=== PATIENT | female | born 1975 | race Caucasian/White ===

== ENCOUNTER → 2019-04-21 11:15 | Outpatient (CLI) | payer MEDICAID, SELFPAY ==
[2019-04-09 17:25] VITALS: BMI 55.0
[2019-04-21 11:50] LABS: Absolute Lymphocyte Count 2.31 X10^3/uL (0.83-4.51); Absolute Neutrophil Count 7.4 X10^3/uL (2.0-7.7); Basophil# 0.05 X10^3/uL; Basophil% 0.5 % (0-1); Eosinophil# 0.14 X10^3/uL; Eosinophils% 1.3 % (0-5); Hematocrit 42.3 % (37-47); Hemoglobin 13.2 g/dL (12.0-15.0); Lymphocyte # 2.31 X10^3/ul (4.0); Lymphocyte % 21.7 % (19-41); Mean Corp Hgb Conc 31.2 g/dL (32-36); Mean Corpuscular Hgb 26.2 pg (27.0-32.0); Mean Corpuscular Volume 83.9 fL (81-99); Mean Platelet Vol. 10.6 fl (6.2-12.0); Monocyte# 0.73 X10^3/uL; Monocyte% 6.9 % (0-10); NRBC Flagged by Analyzer 0 % (0-5); Neutrophil # 7.36 X10^3/uL (2.7-7.7); Neutrophil % 69.2 % (47-70); Platelet Count 232 K/mm3 (150-450); RBC Distribution Width CV 13.4 % (11.6-14.6); RBC Distribution Width SD 40.9 fl (35.1-43.9); Red Blood Count 5.04 M/mm3 (4.2-5.4); White Blood Count 10.6 K/mm3 (4.4-11.0)
[2019-04-21 12:27] LABS: ALB/GLOB Ratio 0.7 RATIO (0.9-2.4); AST(SGOT) 23 U/L (15-37); Alanine Aminotransfer ALT/SGPT 33 U/L (13-56); Albumin, Serum 3.2 g/dL (3.2-5.0); Alkaline Phosphatase 139 U/L (45-117); Anion Gap 7 (5-15); BUN 14 mg/dL (7-18); BUN/Creat Ratio 19.8 RATIO (10-20); Chloride 107 mmol/L (98-107); Cholesterol 191 mg/dL (200); Creatinine, Serum 0.71 mg/dL (0.55-1.02); EST Glomerular Filtration Rate 97 mL/min (>60); Est Glom Filt Rate - Afr Amer 117 mL/min (>60); Globulin 4.4 g/dL (2.2-4.2); Glucose 113 mg/dL (74-106); High Density Lipoprotein 45 mg/dL; Potassium 4.4 mmol/L (3.5-5.1); Protein, Total 7.6 g/dL (6.4-8.2); Sodium Level 141 mmol/L (136-145); Triglycerides 142 mg/dL; Very Low Density Lipoprotein 28 mg/dL (5-40)
== END ==
PROVIDERS: Family Provider Internal Medicine; PCP Internal Medicine; Referring Provider Internal Medicine; Visit Provider Internal Medicine
DX: I10 Essential (primary) hypertension (principal); E78.5 Hyperlipidemia, unspecified; K21.9 Gastro-esophageal reflux disease without esophagitis
CPT/HCPCS: 36415; 80053; 80061; 85025

== ENCOUNTER → 2019-07-29 09:52 | Outpatient (CLI) | payer MEDICAID, SELFPAY ==
[2019-07-29 09:06] VITALS: BMI 55.5
[2019-07-29 12:25] LABS: ALB/GLOB Ratio 0.8 RATIO (0.9-2.4); AST(SGOT) 28 U/L (15-37); Alanine Aminotransfer ALT/SGPT 39 U/L (13-56); Albumin, Serum 3.5 g/dL (3.2-5.0); Alkaline Phosphatase 136 U/L (45-117); Anion Gap 4 (5-15); BUN 12 mg/dL (7-18); BUN/Creat Ratio 15.7 RATIO (10-20); Calcium,Total 9.5 mg/dL (8.5-10.1); Chloride 106 mmol/L (98-107); Creatinine, Serum 0.77 mg/dL (0.55-1.02); EST Glomerular Filtration Rate 88 mL/min (>60); Est Glom Filt Rate - Afr Amer 107 mL/min (>60); Globulin 4.5 g/dL (2.2-4.2); Glucose 137 mg/dL (74-106); Potassium 4.6 mmol/L (3.5-5.1); Sodium Level 138 mmol/L (136-145); Thyroid Stim Hormone (TSH) 3.57 uIU/mL (0.358-3.74)
== END ==
PROVIDERS: Family Provider Internal Medicine; PCP Internal Medicine; Visit Provider Nurse Practitioner Family
DX: I10 Essential (primary) hypertension (principal); R10.11 Right upper quadrant pain
CPT/HCPCS: 36415; 80053; 84443

== ENCOUNTER → 2019-08-02 09:13 | Outpatient (CLI) | payer MEDICAID, SELFPAY ==
[2019-07-29 09:06] VITALS: BMI 55.5
--- NOTE | 2019-08-02 09:18 | US_ITS ---
STUDY: ABDOMINAL ULTRASOUND - RIGHT UPPER QUADRANT REASON FOR VISIT: Female, 43 years old. Right upper quadrant pain TECHNIQUE: Ultrasound evaluation of the right upper quadrant was performed with real-time and static mehta-scale imaging. TECHNICAL QUALITY: Adequate. COMPARISON: None. FINDINGS: Liver: The liver measures 19.5 cm. There is increased echogenicity of the liver. The bile ducts are within normal limits. There is hepatic color flow. The direction of portal flow is hepatopetal. There is no demonstrated mass lesion. Gallbladder: Surgically removed Common Bile Duct (C.B.D.): The common bile duct measures 5 mm. Pancreas: Not visualized Right Kidney: Normal size of the right kidney. The right kidney measures 11.3 x 5.4 x 7.1 cm. Normal renal cortex. The right cortex measures 2 cm. There is a 1 cm renal cyst.. There is no right hydronephrosis. US/Abdomen Limited IMPRESSION: Hepatomegaly and diffuse disease, presumably steatosis. Hepatology referral is advised. Electronically Signed: Delmi Sofia, at 20:59 EST Tel , Service support ,
== END ==
PROVIDERS: Family Provider Internal Medicine; PCP Internal Medicine; Referring Provider Nurse Practitioner Family; Visit Provider Nurse Practitioner Family
DX: R10.11 Right upper quadrant pain (principal)
CPT/HCPCS: 76705

== ENCOUNTER 2019-12-10 14:53 | Outpatient (RCR) | payer MEDICAID, SELFPAY ==
[2019-11-21 14:03] VITALS: BMI 55.5
== END 2019-12-10 23:59 | disposition home or self-care (01) ==
LOC: DC 14:53
PROVIDERS: PCP Internal Medicine; Visit Provider Nurse Practitioner Family
DX: Z71.3 Dietary counseling and surveillance (principal); E11.9 Type 2 diabetes mellitus without complications; E66.9 Obesity, unspecified; Z68.43 Body mass index [BMI] 50.0-59.9, adult
CPT/HCPCS: G0108

== ENCOUNTER → 2020-01-29 14:54 | Outpatient (CLI) | payer MEDICAID, SELFPAY ==
[2020-01-29 14:05] VITALS: BMI 55.5
[2020-01-29 17:15] LABS: Anion Gap 8 (5-15); BUN 10 mg/dL (7-18); BUN/Creat Ratio 14.7 RATIO (10-20); Calcium,Total 8.7 mg/dL (8.5-10.1); Chloride 105 mmol/L (98-107); Creatinine, Serum 0.68 mg/dL (0.55-1.02); EST Glomerular Filtration Rate 101 mL/min (>60); Est Glom Filt Rate - Afr Amer 122 mL/min (>60); Glucose 154 mg/dL (74-106); Potassium 3.8 mmol/L (3.5-5.1); Sodium Level 137 mmol/L (136-145)
== END ==
PROVIDERS: PCP Internal Medicine; Referring Provider Internal Medicine; Visit Provider Internal Medicine
DX: I10 Essential (primary) hypertension (principal)
CPT/HCPCS: 36415; 80048

== ENCOUNTER → 2020-02-23 14:47 | Outpatient (CLI) | payer MEDICAID, SELFPAY ==
[2020-02-18 08:25] VITALS: BMI 55.5
[2020-02-23 16:53] LABS: Platelet Count 200 K/mm3 (150-450)
[2020-02-23 17:08] LABS: International Normalized Ratio 1.1; Prothrombin Time (Protime)PT. 13.4 SECONDS (11.7-14.9)
[2020-02-23 17:09] LABS: Partial Thromboplast Time 30.1 Seconds (24.1-36.2)
== END ==
PROVIDERS: PCP Internal Medicine; Referring Provider Surgery; Visit Provider Surgery
DX: Z01.818 Encounter for other preprocedural examination (principal)
CPT/HCPCS: 36415; 85049; 85610; 85730

== ENCOUNTER → 2020-02-26 08:44 | Outpatient (CLI) | payer MEDICAID, SELFPAY ==
[2020-02-18 08:25] VITALS: BMI 55.5
[2020-02-26] VITALS (8 sets, daily range): BP systolic 118–159; BP diastolic 71–116; PULSE 80–103; RESP 10–24; O2SAT 94–99; BMI 54.3
--- NOTE | 2020-02-26 | CYSPIN_PTH ---
PATIENT: RICKY RICHARDS LOC: [place] U#:[id number] AGE/SX: 49/F ROOM: RE02/26/[address]: Dr. Wojciech Killian MD : 1975 BED: DIS: SPEC #: [id number] RECD: 02/26/20 14:34 STATUS: NGA REKrista #: [id number] COSTA: 02/26/20 00:[address]: Wojciech Killian DEPT: CYTOLOGY RECD BY: Dale Pascal ENTERED: 02/26/20 14:35 SP TYPE: CYSPIN FL OTHR DR: Dr. Jermaine Juarez MD Tissues: Umbilical region Procedures: Pap Stain (control) Special Stain Group II Surgery Specimen Level IV Cytospin Fluid HEADER OPERATION: Periumbilical cyst, FNA PRE-OP DIAGNOSIS: Disorder of peritoneum, periumbilical pain, abnormal findings on imaging TISSUE SUBMITTED: Periumbilical cyst DIAGNOSIS CYTOLOGY Periumbilical cyst, FNA (cytospin and cell block): Consistent with benign cyst. See comment. JOLIE:lucrecia 02/27/20 COMMENT The specimen predominantly consists of macrophages. Malignant cells are not identified. Correlation with clinical, radiologic findings and appropriate follow up are necessary. CYTOLOGY STUDY Slides are reviewed. CYTOLOGY GROSS Received is 5 ml of red cloudy fluid labeled with the patient's name and and designated per the requisition as periumbilical cyst. Submitted for cytology preparation including cell block. / lucrecia 02/26/20 TC:5 CPT: 55405, 64545
--- NOTE | 2020-02-26 08:45 | CT_ITS ---
PROCEDURE: CT DIRECTED ABSCESS DRAINAGE, PERITONEAL DATE OF EXAMINATION: 02/26/2020. INDICATION: Female, 44 years old. Anterior peritoneal cyst. PHYSICIAN: Emanuel Perez M.D. CONSENT: Written informed consent was obtained having explained the risks, benefits and alternatives in detail with the patient who accepted the risks and agreed to proceed. Laboratory review and clinical assessment was performed. CONSCIOUS SEDATION PROTOCOL: The Drugs used were: 3 mg Versed, IV., and 75 mcg Fentanyl, IV. The sedation time was: 19 minutes. Conscious sedation was started at 10:09 AM and terminated at 10:28 AM The conscious sedation protocol was independently monitored. RADIATION DOSAGE (If Supplied By Facility): CTDIvol = ( 19 ) mGy, DLP = ( 1143.71 ) mGycm. Individualized dose optimization techniques were utilized. TECHNIQUE: CT sections were made through the abdomen and pelvis revealing a 2.7 cm by 2.6 cm predominantly cystic nodule in the anterior peritoneal fat in the right paraumbilical region. The skin surface was prepped and draped in a sterile fashion. Puncture of this collection was performed with an 18-gauge Franseen needle. Aspiration of approximately 5 cc of dark blood was obtained. This is in keeping with resolving hematoma. CT/CT Guidance Abscess Drg w/Cath IMPRESSION: 1. CT directed drainage of a fluid collection using CT image guidance and image documentation as described. 2. Conscious Sedation protocol utilized with independent monitoring Electronically Signed: Emanuel Perez, at 10:49 EDT , Service support ,
[2020-02-26] MEDS: Midazolam 2 MG/2 ML Syringe IV ×2 (10:09→10:25)
[2020-02-26] MEDS: fentaNYL 100 MCG/2 ML Ampul IV ×2 (10:10→10:25)
[2020-02-26 11:11] LABS: Cytology, Body Fluid / CSF SEE PATHOLOGY REPORT
== END ==
PROVIDERS: PCP Internal Medicine; Referring Provider Surgery; Visit Provider Surgery
DX: K66.8 Other specified disorders of peritoneum (principal); I10 Essential (primary) hypertension; E78.00 Pure hypercholesterolemia, unspecified; M19.90 Unspecified osteoarthritis, unspecified site; K21.9 Gastro-esophageal reflux disease without esophagitis; Z87.891 Personal history of nicotine dependence
CPT/HCPCS: 49406; 75989; 88108; 88305; 88313; 99156; 99157; J7040; A4216

== ENCOUNTER → 2020-07-09 | Outpatient (CLI) | payer MEDICAID, SELFPAY ==
[2020-04-02 14:09] VITALS: BMI 54.3
== END | disposition home or self-care (01) ==
LOC: LABSPEC 13:42
PROVIDERS: PCP Internal Medicine; Referring Provider Nurse Practitioner Family; Visit Provider Nurse Practitioner Family
DX: Z20.828 Contact with and (suspected) exposure to other viral communicable diseases (principal); R19.7 Diarrhea, unspecified
CPT/HCPCS: 87635; U0003

== ENCOUNTER 2020-09-12 13:12 | Emergency (ER) | payer MEDICAID, SELFPAY ==
[2020-04-02 14:09] VITALS: BMI 54.3
[2020-09-12 13:13] VITALS: BP 179/121; PULSE 102; RESP 18; TEMP 35.8; O2SAT 97; BMI 54.5
[2020-09-12 13:23] VITALS: BP 182/118; PULSE 98; RESP 16; O2SAT 97
[2020-09-12 13:31] LABS: Bedside Glucose 107 mg/dL (70-110)
--- NOTE | 2020-09-12 13:36 | EKG12_ITS ---
Test Reason : CHEST TINGLES Blood Pressure : / mmHG Vent. Rate : 092 BPM Atrial Rate : 092 BPM P-R Int : 166 ms QRS Dur : 094 ms QT Int : 368 ms P-R-T Axes : 043 015 058 degrees QTc Int : 455 ms Normal sinus rhythm Normal ECG Confirmed by GAVIN HAHN, MYNOR ([id number]), video effects editor [employer] ([id number]) on 09/16/2020 8:41:47 AM Referred By: PER Confirmed By:MYNOR ALONSO MD
--- NOTE | 2020-09-12 13:36 | CT_ITS ---
STUDY: CT BRAIN WITHOUT CONTRAST REASON FOR EXAM: Female, 44 years old. N/T LT FACE, BACK OF HEAD, BILAT FEET, LT ARM, DIZZINESS, HLD,HTN RADIATION DOSAGE (If Supplied By Facility): CTDIvol = ( 44.99 ) mGy, DLP = ( 829.85 ) mGycm TECHNIQUE: Transaxial CT imaging of the brain was performed without administration of intravenous contrast material. Individualized dose optimization techniques were used for this CT. COMPARISON: No relevant priors. FINDINGS: Normal soft tissue structures. Normal calvarium. Normal size ventricles and extra-axial spaces for the patient''s age. Normal white matter tracts of the cerebral hemispheres. Normal basal ganglia and thalami. Normal brainstem. Normal cerebellum. There is no intracranial hemorrhage. There are no findings of an acute ischemic infarction. Normal visualized paranasal sinuses. CT/Brain/Head without Contrast IMPRESSION: Normal unenhanced CT scan of the brain. Electronically Signed: Alexia Solorio MD at 14:55 EST Tel , Service support ,
--- NOTE | 2020-09-12 13:37 | ED.VIS.GEN ---
History of Present Illness Chief Complaint: Neuro S/Sx Informant: Patient Onset: Today - Awoke this morning Context: Sudden Onset Timing: Continuous Quality: Numbness Location: Band around head, 2 specific areas face, LUE and dorsal surface feet Current Severity: Mild Maximum Severity: Moderate Worsened by: Nothing Relieved by: Nothing Associated Symptoms: No other symptoms Narrative: Patient is a 44-year-old woman who had similar symptoms last Sunday and was seen at outside facility. She states no imaging was done at that time. They did not treat her elevated blood pressure. She states her systolic pressure was 190. She was seen by orthopedist on September 07. Systolic blood pressure was 124. She states upon awakening this morning she has numbness that is in a bandlike distribution head, over the left maxillary area there is point numbness and inferior left orbit. She denies trouble with swallowing. She denies trouble with speech or swallowing. She denies difficulty using her arms or arms with balance. She also reports numbness left upper extremity and the dorsal surface of her feet. She denies cardiac, respiratory or GI symptoms. Prior similar symptoms: Yes Recent Illness/Hospitalization: Yes - Past Medical History (1) Numbness and tingling of both legs Status: Acute (2) Arthritis Status: Chronic (3) Back problem Status: Chronic (4) Frequent headaches Status: Chronic (5) GERD (gastroesophageal reflux disease) Status: Chronic (6) High blood pressure Status: Chronic (7) High cholesterol Status: Chronic (8) Osteoarthritis Status: Chronic (9) Breast lump in female Status: Resolved (10) Carpal tunnel syndrome Status: Resolved Past Medical History - Allergies and Home Meds Allergies/Adverse Reactions: Allergies No Known Allergies Allergy (Verified 09/12/20 13:13) Primary Care Physician: Jermaine Juarez MD [Primary Care Provider] - Prior records reviewed: Yes Surgical History: - - Numerous surgeries that are not contributory to presentation Smoking Status: Former smoker Alcohol: None Drugs: None Review of Systems General: Denies: Chills, Fever, Malaise, Subjective, Sweats Eyes: Denies: Visual changes - bilaterally, Blurred Vision - bilaterally, Diplopia ENT: Denies: Bilateral ear pain, Rhinorrhea, Sore throat Cardiovascular: Denies: Chest pain, Palpitations Respiratory: Denies: Dyspnea, Cough, Dyspnea on exertion Gastrointestinal: Denies: Abdominal pain, Nausea, Vomiting, Diarrhea, Melena, Hematochezia Genitourinary: Denies: Dysuria, Hematuria, Frequency Musculoskeletal: Denies: Myalgias, Arthralgias, Neck pain, Back pain, Swelling, Extremity Pain, -, - Neurological: Reports: Parasthesia, Numbness. Denies: Headache, Weakness Psych: Denies: Depression, Anxiety Endocrine: Denies: Polyuria, Polydipsia Hematologic: Denies: Easy bruising, Easy bleeding Allergy: Denies: Uticaria Physical Exam Vital Signs/Narrative: Vital Signs Temp Pulse Resp BP Pulse Ox 09/12/20 13:23 98 16 182/118 H 97 09/12/20 13:13 96.5 F L 102 H 18 179/121 H 97 Inital Vital Signs reviewed: Yes General: Well nourished, Well developed, Obese, No Acute Distress Head: Normocephalic, Atraumatic Eyes: Perrl, EOMI, - - Negative for APD. Negative for: Pale conjunctiva, Scleral icterus ENT: Moist mucous membranes, No rhinorrhea, TM's clear Neck: Supple, Nontender, No lymphadenopathy, No JVD Cardiovascular: Regular rate, Regular rhythm, No murmurs, Normal S1, Normal S2 Respiratory: No distress, CTA bilaterally, Chest nontender Abdomen: Soft, Nontender, Nondistended, Normal bowel sounds Rectal: Deferred Back: Nontender, Normal Inspection Extremities: Nontender, No edema. Negative for: Tenderness, Edema, Calf Tenderness Skin: Normal color, No rash. Negative for: Cyanosis, Diaphoresis, Jaundice, No Trauma Neurological: Alert, Oriented x3, Cranial nerves II-XII grossly intact, Normal Strength, Normal Sensation, Normal DTR Psychological: Normal affect Diagnostic/Tx/Re-eval Impressions Brain CT 09/12/20 13:36 IMPRESSION: Normal unenhanced CT scan of the brain. Electronically Signed: Alexia Solorio MD at 14:55 EST Tel , Service support , 09/12/20 13:36 Brain/Head without Contrast [CT] Stat Laboratory Results 09/12/20 09/12/20 09/12/20 13:23 13:45 13:45 WBC 8.0 RBC 4.75 Hgb 12.9 Hct 39.9 MCV 84.0 MCH 27.2 MCHC 32.3 RDW Std Deviation 39.2 RDW Coeff of Celena 12.8 Plt Count 211 MPV 10.7 Immature Gran % (Auto) 0.500 Neut % (Auto) 73.5 H Lymph % (Auto) 19.0 Mckean % (Auto) 5.5 Eos % (Auto) 1.1 Baso % (Auto) 0.4 Absolute Neuts (auto) 5.9 Absolute Lymphs (auto) 1.52 Nucleated RBC % 0 Sodium 138 Potassium 3.5 Chloride 104 Carbon Dioxide 26.0 Anion Gap 8 BUN 12 Creatinine 0.65 Estim Creat Clear Calc 105.55 Est GFR (MDRD) Af Amer 128 Est GFR (MDRD) Non-Af 106 BUN/Creatinine Ratio 18.4 Glucose 111 H Calcium 8.9 Urine Color Urine Clarity Urine pH Ur Specific [place] Urine Protein Urine Glucose (UA) Urine Ketones Urine Occult Blood Urine Nitrite Urine Bilirubin Urine Urobilinogen Ur Leukocyte Esterase Urine RBC Urine WBC Ur Squamous Epith Cells Urine Bacteria Urine Mucus POC Glucose 107 09/12/20 14:05 WBC RBC Hgb Hct MCV MCH MCHC RDW Std Deviation RDW Coeff of [place] Plt Count MPV Immature Gran % (Auto) Neut % (Auto) Lymph % (Auto) Mckean % (Auto) Eos % (Auto) Baso % (Auto) Absolute Neuts (auto) Absolute Lymphs (auto) Nucleated RBC % Sodium Potassium Chloride Carbon Dioxide Anion Gap BUN Creatinine Estim Creat Clear Calc Est GFR (MDRD) Af Amer Est GFR (MDRD) Non-Af BUN/Creatinine Ratio Glucose Calcium Urine Color Yellow Urine Clarity Clear Urine pH 5.0 Ur Specific [place] 1.020 Urine Protein 30 H Urine Glucose (UA) Normal Urine Ketones 5 H Urine Occult Blood Negative Urine Nitrite Negative Urine Bilirubin 1 H Urine Urobilinogen 1 H Ur Leukocyte Esterase 25 H Urine RBC 0 SEEN Urine WBC 0 SEEN Ur Squamous Epith Cells 10-25 SEEN Urine Bacteria 2+ Urine Mucus 2+ POC Glucose Urine is a contaminated specimen with 10-[address] of the head was unremarkable. There is no evidence of endorgan injury. Most recent blood pressure is 160/105. Patient states she will go home and take her dose of losartan and hydrochlorothiazide. She states she will contact her primary care physician tomorrow morning to get seen within the next week. - EKG Initial EKG Interpretation: Sinus Rhythm - Normal sinus rhythm with ventricular rate 92. IN interval is 166 ms. Cures duration 94 ms. QT duration 368 ms. Weldon is normal. The EKG is normal. - Medical Decision Making Does have elevated blood pressure with diastolic 120. EKG, blood work and urinalysis was obtained to assess for endorgan injury. Since this is her second visit for similar presentation and no imaging was done 1 week ago will obtain imaging at this time. ED Disposition - Plan for ED Patient: Disposition: Home or Assisted Living Diagnosis: Labile hypertension, Paresthesia of both feet Instructions: ED Hypertension, Established, ED Paraesthesias Referrals: Jermaine Juarez MD [Primary Care Provider] - 5-7 Days
[2020-09-12 13:52] LABS: Absolute Lymphocyte Count 1.52 X10^3/uL (0.83-4.51); Absolute Neutrophil Count 5.9 X10^3/uL (2.0-7.7); Basophil# 0.03 X10^3/uL; Basophil% 0.4 % (0-1); Eosinophil# 0.09 X10^3/uL; Eosinophils% 1.1 % (0-5); Hematocrit 39.9 % (37-47); Hemoglobin 12.9 g/dL (12.0-15.0); Lymphocyte # 1.52 X10^3/ul (4.0); Mean Corp Hgb Conc 32.3 g/dL (32-36); Mean Corpuscular Hgb 27.2 pg (27.0-32.0); Mean Platelet Vol. 10.7 fl (6.2-12.0); Monocyte# 0.44 X10^3/uL; Monocyte% 5.5 % (0-10); NRBC Flagged by Analyzer 0 % (0-5); Neutrophil # 5.89 X10^3/uL (2.7-7.7); Neutrophil % 73.5 % (47-70); Platelet Count 211 K/mm3 (150-450); RBC Distribution Width CV 12.8 % (11.6-14.6); RBC Distribution Width SD 39.2 fl (35.1-43.9); Red Blood Count 4.75 M/mm3 (4.2-5.4)
[2020-09-12 14:11] LABS: Red Blood Cells-Urine 0 SEEN /hpf (0-5); White Blood Cells 0 SEEN /hpf (0-5)
[2020-09-12 14:12] LABS: Anion Gap 8 (5-15); BUN 12 mg/dL (7-18); BUN/Creat Ratio 18.4 RATIO (10-20); Calcium,Total 8.9 mg/dL (8.5-10.1); Chloride 104 mmol/L (98-107); Creatinine, Serum 0.65 mg/dL (0.55-1.02); EST Glomerular Filtration Rate 106 mL/min (>60); Est Glom Filt Rate - Afr Amer 128 mL/min (>60); Estimated Creatinine Clearance 105.55 ml/min; Glucose 111 mg/dL (74-106); Potassium 3.5 mmol/L (3.5-5.1); Sodium Level 138 mmol/L (136-145)
[2020-09-12 14:22] LABS: Color, Urine Yellow (Yellow); Glucose, Dipstick Normal (Normal); Ketone-Dipstick 5 mg/dl (Negative); Leukocyte Esterase-Dipstick 25 /ul (Negative); Nitrite-Dipstick Negative (Negative); Occult Blood-Urine Negative /ul (Negative); Protein-Dipstick 30 mg/dl (Negative); Urine Clarity Clear (Clear); Urine Urobilinogen 1 mg/dl (Normal)
[2020-09-12 14:28] LABS: Urine Bilirubin Dipstick 1 mg/dL (Negative)
[2020-09-12 14:40] LABS: Bacteria 2+ /hpf (None Seen); Mucous, Urine 2+ /hpf (<or=2+); Squamous Epithelial Cells - UA 10-25 SEEN /hpf (5-10)
[2020-09-12 15:05] LABS: AST(SGOT) 32 U/L (15-37); Alanine Aminotransfer ALT/SGPT 38 U/L (13-56); Albumin, Serum 3.3 g/dL (3.2-5.0); Alkaline Phosphatase 125 U/L (45-117); Bilirubin, Direct 0.12 mg/dL (0.00-0.30); Globulin 3.8 g/dL (2.2-4.2); Protein, Total 7.1 g/dL (6.4-8.2)
[2020-09-12 15:52] VITALS: BP 151/102; PULSE 91; RESP 16; O2SAT 99
== END 2020-09-12 15:53 | disposition home or self-care (01) ==
PROVIDERS: Emergency Provider Emergency Medicine; PCP Internal Medicine
DX: I10 Essential (primary) hypertension (principal); R20.2 Paresthesia of skin; M19.90 Unspecified osteoarthritis, unspecified site; K21.9 Gastro-esophageal reflux disease without esophagitis; E78.00 Pure hypercholesterolemia, unspecified; E66.9 Obesity, unspecified; Z68.43 Body mass index [BMI] 50.0-59.9, adult; Z87.891 Personal history of nicotine dependence
CPT/HCPCS: 70450; 80048; 80076; 81001; 82962; 85025; 93005; 99284; A4216

== ENCOUNTER 2020-09-20 08:04 | Day surgery (SDC) | payer MEDICAID, SELFPAY ==
[2020-04-02 14:09] VITALS: BMI 54.3
[2020-09-16 09:26] VITALS: BMI 54.5
[2020-09-17 09:20] LABS: Hematocrit 44.1 % (37-47); Hemoglobin 13.9 g/dL (12.0-15.0); Mean Corp Hgb Conc 31.5 g/dL (32-36); Mean Corpuscular Hgb 26.4 pg (27.0-32.0); Mean Corpuscular Volume 83.8 fL (81-99); Mean Platelet Vol. 11.2 fl (6.2-12.0); Platelet Count 268 K/mm3 (150-450); RBC Distribution Width SD 39.6 fl (35.1-43.9); Red Blood Count 5.26 M/mm3 (4.2-5.4)
[2020-09-17 10:24] LABS: Anion Gap 6 (5-15); BUN 14 mg/dL (7-18); BUN/Creat Ratio 18.4 RATIO (10-20); Calcium,Total 9.5 mg/dL (8.5-10.1); Chloride 102 mmol/L (98-107); Creatinine, Serum 0.76 mg/dL (0.55-1.02); EST Glomerular Filtration Rate 88 mL/min (>60); Est Glom Filt Rate - Afr Amer 107 mL/min (>60); Glucose 136 mg/dL (74-106); Potassium 4.3 mmol/L (3.5-5.1); Sodium Level 135 mmol/L (136-145)
[2020-09-17 10:25] LABS: Hemoglobin A1c 6.1 % (3.8-5.6)
[2020-09-20] VITALS (7 sets, daily range): BP systolic 105–140; BP diastolic 58–85; PULSE 92–111; RESP 16–18; TEMP 36.3–36.9; O2SAT 92–97; BMI 54.1
[2020-09-20] MEDS: Lactated Ringers 1,000 ML 100 ML IV (09:07)
[2020-09-20] MEDS: Epinephrine (1 mg/ml) 1 MG/ML VIAL (10:05)
[2020-09-20] MEDS: Bupiv/Epi 0.5% Mpf 30 ML Vial (10:15)
--- NOTE | 2020-09-20 10:23 | PCM.OPRPT ---
Report of Operation Date of Procedure: 09/20/20 Pre-Operative Diagnosis: Internal derangement right knee Post-Operative Diagnosis: MMT, LMT, Partial ACL tear, Grade 3 chondromalacia MFC, LFC and PFJ Surgery/Procedure Performed:: D & O arthroscopy right knee Type of Anesthesia:: General Anesthesiologist: Juan J Pritchard - Admbenedict VTE Documentation VTE Present on Admission: No VTE Mechan Device Prophylaxis: SCD's, Thigh High MIKE Hose VTE Pharm Prophylaxis ordered?: No Reason prophylaxis not ordered:: Treatment Not Indicated
[2020-09-20] MEDS: HYDROcodone Bitartrate/Apap 5/325 Tablet PO (12:03)
== END 2020-09-20 12:48 | disposition home or self-care (01) ==
LOC: SDC 08:05 → AC 08:06
PROVIDERS: PCP Internal Medicine; Referring Provider Orthopaedic Surgery; Visit Provider Orthopaedic Surgery
PROC: (CPT 29870; principal; 2020-09-20 09:40)
DX: S83.241A Other tear of medial meniscus, current injury, right knee, initial encounter (principal); S83.281A Other tear of lateral meniscus, current injury, right knee, initial encounter; S83.511A Sprain of anterior cruciate ligament of right knee, initial encounter; X58.XXXA Exposure to other specified factors, initial encounter; M22.41 Chondromalacia patellae, right knee; M17.12 Unilateral primary osteoarthritis, left knee; I10 Essential (primary) hypertension; Z20.822 Contact with and (suspected) exposure to COVID-19; Z87.891 Personal history of nicotine dependence
CPT/HCPCS: 29880; 29999; 36415; 80048; 83036; 85027; 87426; C9803; J7120; J2405

== ENCOUNTER → 2020-11-23 10:07 | Outpatient (CLI) | payer MEDICAID, SELFPAY ==
[2020-11-23 09:39] VITALS: BMI 54.1
[2020-11-23 12:50] LABS: Hematocrit 43.4 % (37-47); Hemoglobin 13.4 g/dL (12.0-15.0); Mean Corp Hgb Conc 30.9 g/dL (32-36); Mean Corpuscular Hgb 26.4 pg (27.0-32.0); Mean Corpuscular Volume 85.4 fL (81-99); Mean Platelet Vol. 11.9 fl (6.2-12.0); Platelet Count 235 K/mm3 (150-450); RBC Distribution Width CV 13.2 % (11.6-14.6); RBC Distribution Width SD 40.8 fl (35.1-43.9); Red Blood Count 5.08 M/mm3 (4.2-5.4); White Blood Count 11.4 K/mm3 (4.4-11.0)
[2020-11-23 13:41] LABS: ALB/GLOB Ratio 0.8 RATIO (0.9-2.4); AST(SGOT) 37 U/L (15-37); Alanine Aminotransfer ALT/SGPT 41 U/L (13-56); Albumin, Serum 3.3 g/dL (3.2-5.0); Alkaline Phosphatase 132 U/L (45-117); Anion Gap 6 (5-15); BUN 11 mg/dL (7-18); BUN/Creat Ratio 14.8 RATIO (10-20); Calcium,Total 9.4 mg/dL (8.5-10.1); Chloride 103 mmol/L (98-107); Creatinine, Serum 0.74 mg/dL (0.55-1.02); EST Glomerular Filtration Rate 91 mL/min (>60); Est Glom Filt Rate - Afr Amer 110 mL/min (>60); Globulin 4.2 g/dL (2.2-4.2); Glucose 145 mg/dL (74-106); Magnesium 2.3 mg/dL (1.6-2.6); Protein, Total 7.5 g/dL (6.4-8.2); Sodium Level 136 mmol/L (136-145)
[2020-11-24 09:44] LABS: Hemoglobin A1c 6.4 % (3.8-5.6)
== END ==
PROVIDERS: PCP Internal Medicine; Referring Provider Nurse Practitioner Family; Visit Provider Nurse Practitioner Family
DX: R00.2 Palpitations (principal); R73.09 Other abnormal glucose
CPT/HCPCS: 36415; 80053; 83036; 83735; 84443; 85027

== ENCOUNTER → 2020-12-13 12:58 | Outpatient (CLI) | payer MEDICAID, SELFPAY ==
[2020-11-23 09:39] VITALS: BMI 54.1
== END ==
PROVIDERS: PCP Internal Medicine; Referring Provider Nurse Practitioner Family; Visit Provider Nurse Practitioner Family
DX: R00.2 Palpitations (principal)
CPT/HCPCS: 93225; 93226

== ENCOUNTER → 2021-01-17 12:59 | Outpatient (CLI) | payer MEDICAID, SELFPAY ==
[2020-12-29 13:51] VITALS: BMI 54.8
--- NOTE | 2021-01-17 13:00 | ECHOCS_ITS ---
Reason For Study: ARRHYTHMIA Procedure This was a 2D Doppler, Color Flow transthoracic echocardiogram. The study was technically difficult. Due to body habitus. Contrast injection was performed. Exam performed in department. Left Ventricle Normal LV size. Mild concentric left ventricular hypertrophy. Left ventricular systolic function is normal. The estimated ejection fraction is 65 %. Stage 1 diastolic dysfunction. No regional wall motion abnormalities noted. Right Ventricle Normal RV size. Normal systolic function. Atria Normal left atrium. Normal right atrium. Mitral Valve Normal mitral valve. Tricuspid Valve Normal tricuspid valve. Aortic Valve The aortic valve is not well visualized. Pulmonic Valve Normal pulmonic valve. Great Vessels Normal aortic root. The pulmonary artery is normal size. Normal inferior vena cava. Pericardium/Pleural No pericardial effusion. Medication 22 gauge I.V. with prn adaptor inserted into right arm. Diluted definity 2.0ml given slow IV push to enhance endocardial definition. MMode/2D Measurements & Calculations LVIDd: 4.1 cm IVSd: 1.3 cm Ao root diam: 3.1 cm LVIDs: 2.6 cm LVPWd: 1.3 cm RVDd: 2.7 cm FS: 35.5 % LAV(MOD-bp): 54.5 ml LVAd ap4: 36.5 cm2 LVAd ap2: 33.3 cm2 LAV(MOD-bp) Indexed: 21.8 ml/m2 LVLd ap4: 9.8 cm LVLd ap2: 8.4 cm LAV(MOD-sp2): 50.0 ml EDV(MOD-sp4): 114.0 ml EDV(MOD-sp2): 107.2 ml LAV(MOD-sp4): 50.0 ml EDV(sp4-el): 115.6 ml EDV(sp2-el): 112.0 ml LVAs ap4: 18.0 cm2 LVAs ap2: 16.6 cm2 LVLs ap4: 8.1 cm LVLs ap2: 7.9 cm ESV(MOD-sp4): 34.0 ml ESV(MOD-sp2): 30.2 ml ESV(sp4-el): 33.8 ml ESV(sp2-el): 29.7 ml EF(MOD-sp4): 70.2 % EF(MOD-sp2): 71.8 % EF(sp4-el): 70.8 % SV(MOD-sp4): 80.0 ml SV(MOD-sp2): 77.0 ml SV(sp4-el): 81.8 ml LA A4 area: 19.0 cm2 LA dimension(2D): 4.1 cm RA A4 area: 13.1 cm2 Time Measurements MV dec time: 0.20 sec Doppler Measurements & Calculations MV E max major: 52.3 cm/sec Lat Peak E' Major: 12.6 cm/sec Med Peak E' Major: 11.0 cm/sec MV A max major: 58.7 cm/sec E/E' lat: 4.1 E/E' med: 4.8 MV E/A: 0.89 Ao V2 max: 149.7 cm/sec LV V1 max: 117.1 cm/sec PA V2 max: 127.4 cm/sec Ao max P.0 mmHg LV V1 max P.5 mmHg ECHO/Echo Complete W/ Contrast Interpretation Summary Normal LV size. Mild concentric left ventricular hypertrophy. Left ventricular systolic function is normal. The estimated ejection fraction is 65 %. Stage 1 diastolic dysfunction. Contrast injection was performed. Ordering Physician: Dc Anna Referring Physician: Jermaine Juarez Performed By: Marcy Card, RDCS, RVT
== END ==
PROVIDERS: PCP Internal Medicine; Referring Provider Internal Medicine Cardiovascular Disease; Visit Provider Internal Medicine Cardiovascular Disease
DX: R00.2 Palpitations (principal); I10 Essential (primary) hypertension
CPT/HCPCS: 93306; Q9957; C8929; J3490

== ENCOUNTER 2021-08-12 13:23 | Outpatient (CLI) | payer MEDICAID, SELFPAY | END 2021-08-12 23:59 | disposition short-term general hospital (02) | LOC: LABSPEC 13:23 | PROVIDERS: PCP Internal Medicine; Referring Provider Internal Medicine; Visit Provider Internal Medicine | DX: U07.1 COVID-19 (principal) | CPT/HCPCS: 87635; U0003; U0005 ==

== ENCOUNTER 2021-09-09 14:35 | Outpatient (CLI) | payer MEDICAID, SELFPAY ==
[2021-09-09 15:12] LABS: Absolute Lymphocyte Count 1.37 X10^3/uL (0.83-4.51); Absolute Neutrophil Count 7.4 X10^3/uL (2.0-7.7); Basophil# 0.04 X10^3/uL; Basophil% 0.4 % (0-1); Eosinophil# 0.11 X10^3/uL; Eosinophils% 1.2 % (0-5); Hematocrit 42.4 % (37-47); Hemoglobin 13.7 g/dL (12.0-15.0); Lymphocyte # 1.37 X10^3/ul (0.83-4.51); Lymphocyte % 14.6 % (19-41); Mean Corp Hgb Conc 32.3 g/dL (32-36); Mean Corpuscular Volume 83.6 fL (81-99); Mean Platelet Vol. 11.1 fl (6.2-12.0); Monocyte# 0.47 X10^3/uL; NRBC Flagged by Analyzer 0 % (0-5); Neutrophil # 7.35 X10^3/uL (2.7-7.7); Neutrophil % 78.2 % (47-70); Platelet Count 240 K/mm3 (150-450); RBC Distribution Width CV 14.1 % (11.6-14.6); RBC Distribution Width SD 42.6 fl (35.1-43.9); Red Blood Count 5.07 M/mm3 (4.2-5.4); White Blood Count 9.4 K/mm3 (4.4-11.0)
[2021-09-09 15:53] LABS: Microalbumin,Random Urine 57.3 mg/L (NO RANGE EST.); Microalbumin:Creatinine Ratio 56.2 mg/g CRE (<30 mg/g CRE)
[2021-09-09 15:55] LABS: ALB/GLOB Ratio 0.7 RATIO (0.9-2.4); AST(SGOT) 65 U/L (15-37); Alanine Aminotransfer ALT/SGPT 56 U/L (13-56); Albumin, Serum 3.2 g/dL (3.2-5.0); Alkaline Phosphatase 142 U/L (45-117); Anion Gap 9 (5-15); BUN 10 mg/dL (7-18); Calcium,Total 8.9 mg/dL (8.5-10.1); Chloride 101 mmol/L (98-107); Cholesterol 203 mg/dL (200); Creatinine, Serum 0.77 mg/dL (0.55-1.02); EST Glomerular Filtration Rate 87 mL/min (>60); Est Glom Filt Rate - Afr Amer 105 mL/min (>60); Globulin 4.3 g/dL (2.2-4.2); Glucose 222 mg/dL (74-106); High Density Lipoprotein 42 mg/dL; Potassium 3.8 mmol/L (3.5-5.1); Protein, Total 7.5 g/dL (6.4-8.2); Sodium Level 134 mmol/L (136-145); Thyroid Stim Hormone (TSH) 2.79 uIU/mL (0.358-3.74); Triglycerides 158 mg/dL; Very Low Density Lipoprotein 32 mg/dL (5-40)
== END 2021-09-09 23:59 | disposition home or self-care (01) ==
LOC: BIMLAB 14:36
PROVIDERS: PCP Internal Medicine; Referring Provider Nurse Practitioner Family; Visit Provider Nurse Practitioner Family
DX: I10 Essential (primary) hypertension (principal); E11.9 Type 2 diabetes mellitus without complications; E78.5 Hyperlipidemia, unspecified
CPT/HCPCS: 36415; 80053; 80061; 82043; 82570; 84443; 85025

== ENCOUNTER → 2022-03-23 | Outpatient (CLI) | payer MEDICAID, SELFPAY | END | disposition home or self-care (01) | LOC: LABSPEC 08:42 | PROVIDERS: PCP Internal Medicine; Referring Provider Nurse Practitioner Family; Visit Provider Nurse Practitioner Family | DX: U07.1 COVID-19 (principal) | CPT/HCPCS: 87635; U0003; U0005 ==

== ENCOUNTER → 2023-01-04 | Outpatient (CLI) | payer MEDICAID, SELFPAY ==
[2023-01-04 15:17] LABS: Absolute Lymphocyte Count 2.06 X10^3/uL (0.83-4.51); Absolute Neutrophil Count 7.4 X10^3/uL (2.0-7.7); Basophil# 0.06 X10^3/uL; Basophil% 0.6 % (0-1); Eosinophil# 0.11 X10^3/uL; Eosinophils% 1.1 % (0-5); Hematocrit 44.4 % (37-47); Hemoglobin 13.8 g/dL (12.0-15.0); Lymphocyte # 2.06 X10^3/ul (0.83-4.51); Lymphocyte % 20.1 % (19-41); Mean Corp Hgb Conc 31.1 g/dL (32-36); Mean Corpuscular Hgb 26.3 pg (27.0-32.0); Mean Corpuscular Volume 84.6 fL (81-99); Mean Platelet Vol. 11.4 fl (6.2-12.0); Monocyte# 0.58 X10^3/uL; Monocyte% 5.7 % (0-10); NRBC Flagged by Analyzer 0 % (0-5); Neutrophil # 7.38 X10^3/uL (2.7-7.7); Platelet Count 290 K/mm3 (150-450); RBC Distribution Width CV 13.3 % (11.6-14.6); RBC Distribution Width SD 41.2 fl (35.1-43.9); Red Blood Count 5.25 M/mm3 (4.2-5.4); White Blood Count 10.2 K/mm3 (4.4-11.0)
[2023-01-04 16:02] LABS: Hemoglobin A1c 5.4 % (3.8-5.6)
[2023-01-04 16:04] LABS: ALB/GLOB Ratio 0.7 RATIO (0.9-2.4); AST(SGOT) 13 U/L (15-37); Alanine Aminotransfer ALT/SGPT 21 U/L (13-56); Albumin, Serum 3.4 g/dL (3.2-5.0); Alkaline Phosphatase 123 U/L (45-117); Anion Gap 6 (5-15); BUN 16 mg/dL (7-18); Calcium,Total 9.6 mg/dL (8.5-10.1); Chloride 104 mmol/L (98-107); Creatinine, Serum 0.67 mg/dL (0.55-1.02); EST Glomerular Filtration Rate 102 mL/min (>60); Est Glom Filt Rate - Afr Amer 123 mL/min (>60); Globulin 4.6 g/dL (2.2-4.2); Glucose 86 mg/dL (74-106); Potassium 4.1 mmol/L (3.5-5.1); Sodium Level 135 mmol/L (136-145); Thyroid Stim Hormone (TSH) 2.43 uIU/mL (0.358-3.74)
[2023-01-04 16:12] LABS: Microalbumin,Random Urine < 5.0 mg/L (NO RANGE EST.)
== END | disposition home or self-care (01) ==
LOC: BIMLAB 13:30
PROVIDERS: PCP Internal Medicine; Visit Provider Nurse Practitioner Family
DX: Z00.00 Encounter for general adult medical examination without abnormal findings (principal); E11.65 Type 2 diabetes mellitus with hyperglycemia; I10 Essential (primary) hypertension
CPT/HCPCS: 36415; 80053; 82043; 82570; 83036; 84443; 85025

== ENCOUNTER → 2023-01-09 | Outpatient (CLI) | payer MEDICAID, SELFPAY ==
--- NOTE | 2023-01-09 15:25 | BI_ITS ---
MAMMOGRAPHY - BILATERAL SCREENING REASON FOR EXAM: Female, 47 years old. Routine annual screening examination. PERTINENT HISTORY: Non-contributory. History of prior left excisional breast biopsy. TECHNIQUE: Digital bilateral breast blair (3D mammographic acquisition) in the CC and MLO projections. 2-D mediolateral oblique (MLO) and craniocaudad (CC) views of both breasts were obtained. CAD: Full Field Digital Mammography with Computer Added Detection was performed. COMPARISON: Comparison is made with prior study dated January 22, 2017. FINDINGS: Breast Composition: The breasts are almost entirely fatty. There are no dominant masses or suspicious calcifications. Benign appearing fat-containing bilateral axillary lymph nodes. No other significant abnormalities are identified. There has been no significant change since the prior study. BI/SCRN MAMM (CAD)W/BLAIR BILAT IMPRESSION: Stable bilateral screening mammogram. Yearly follow-up mammogram recommended. (A) ASSESSMENT CATEGORY: BIRADS Category 2: Benign. A letter regarding these results will be sent to the patient by the facility within 30 days. Approximately 10% of breast cancers are not detected by mammography. A normal mammogram should not delay biopsy of a clinically suspicious abnormality. [id number] Electronically Signed: Emanuel Perez MD at 8:19 EDT ,
== END | disposition home or self-care (01) ==
LOC: OPBI 15:24
PROVIDERS: PCP Nurse Practitioner Family; Referring Provider Nurse Practitioner Family; Visit Provider Nurse Practitioner Family
DX: Z12.31 Encounter for screening mammogram for malignant neoplasm of breast (principal)
CPT/HCPCS: 77063; 77067

== ENCOUNTER → 2023-10-31 | Outpatient (CLI) | payer MEDICAID, SELFPAY ==
--- NOTE | 2023-10-31 13:04 | NEURO_ITS ---
NCS and/or EMG Patient Report Ordering Doctor: Eric Lopez [facility] [place] DATE OF SERVICE: 10/31/23 Christine presents for electrodiagnostic testing of the lower limbs. She reports burning and tingling in both feet with restlessness in the legs. Electrodiagnostic findings: Right peroneal motor nerve demonstrates normal distal latency, amplitude and conduction velocity. Left peroneal motor nerve demonstrates normal distal latency, amplitude and conduction velocity. No evidence of conduction block across the fibular head. Tibial motor responses are within normal limits bilaterally. Normal peroneal and tibial F?waves. H- reflex is within normal limits. Sensory responses are normal. Needle EMG testing was performed in the lower limbs. All muscles tested showed no evidence of denervation with normal motor unit action potentials. Electrodiagnostic impression: This a normal electrodiagnostic study of the lower limbs. There is no electrodiagnostic evidence for lumbosacral radiculopathy or peripheral neuropathy. Multi Select Codes Neurology Neurology Interp Codes: 60451-59 Musc test done w/n test comp (interp) (2) and 01167-01 Nrv cndj test 9-10 studies (interp)
== END | disposition home or self-care (01) ==
LOC: PSN 06:49
PROVIDERS: PCP Nurse Practitioner Family; Referring Provider Nurse Practitioner Family; Visit Provider Nurse Practitioner Family
DX: M54.16 Radiculopathy, lumbar region (principal)
CPT/HCPCS: 95886; 95911

== ENCOUNTER → 2024-04-28 | Outpatient (CLI) | payer MEDICAID, SELFPAY ==
--- NOTE | 2024-04-28 15:20 | RAD_ITS ---
STUDY: X-RAY - LUMBAR SPINE REASON FOR EXAM: Female, 48 years old. Low back pain. TECHNIQUE: 2 view(s) of the lumbar spine were obtained. COMPARISON: None FINDINGS: Normal lumbar lordosis. Minimal dextroscoliosis. Normal vertebral alignment. Diffuse mild lower thoracic and lumbosacral facet sclerosis. Intervertebral disc space narrowing in the lower thoracic spine and at L4-5 and L5-S1. Minimal vascular calcification. RAD/Lumbar Spine 2 or 3 Views IMPRESSION: Mild lower thoracic and lower lumbosacral spondylosis as described. Electronically Signed: Dallas Amezcua MD at 15:44 EDT ,
--- NOTE | 2024-04-28 15:20 | RAD_ITS ---
STUDY: X-RAY - THORACIC SPINE REASON FOR EXAM: Female, 48 years old. Low back pain. TECHNIQUE: 3 view(s) of the thoracic spine were obtained. COMPARISON: None. FINDINGS: Slight increased kyphosis. Minimal dextroscoliosis. Diffuse mild intervertebral disc space narrowing with small osteophytes. Cholecystectomy clips. RAD/Thoracic Spine 3 Views IMPRESSION: Increased kyphosis with diffuse mild thoracic spondylosis. Electronically Signed: Dallas Amezcua MD at 15:43 EDT ,
[2024-04-28 16:56] LABS: ALB/GLOB Ratio 0.9 RATIO (0.9-2.4); AST(SGOT) 14 U/L (15-37); Alanine Aminotransfer ALT/SGPT 23 U/L (13-56); Albumin, Serum 3.7 g/dL (3.2-5.0); Alkaline Phosphatase 108 U/L (45-117); Anion Gap 6 (5-15); BUN 15 mg/dL (7-18); BUN/Creat Ratio 23.5 RATIO (10-20); Calcium,Total 9.7 mg/dL (8.5-10.1); Chloride 105 mmol/L (98-107); Creatinine, Serum 0.64 mg/dL (0.55-1.02); EST Glomerular Filtration Rate 106 mL/min (>60); Est Glom Filt Rate - Afr Amer 129 mL/min (>60); Glucose 87 mg/dL (74-106); Potassium 4.3 mmol/L (3.5-5.1); Protein, Total 7.7 g/dL (6.4-8.2); Sodium Level 138 mmol/L (136-145)
== END | disposition home or self-care (01) ==
PROVIDERS: PCP Nurse Practitioner Family; Referring Provider Nurse Practitioner Family; Visit Provider Nurse Practitioner Family
DX: M54.50 Low back pain, unspecified (principal)
CPT/HCPCS: 36415; 72072; 72100; 80053

== ENCOUNTER → 2024-08-23 | Outpatient (CLI) | payer MEDICAID, SELFPAY ==
--- NOTE | 2024-08-23 06:30 | MRI_ITS ---
EXAM: MR LUMBAR SPINE WITHOUT INTRAVENOUS CONTRAST CLINICAL INDICATION: PAIN LEFT LOWER LEG TECHNIQUE: Multiplanar and multisequence MR images of the lumbar spine without intravenous contrast. COMPARISON: No relevant prior studies available. FINDINGS: VERTEBRAE: 12 mm L5 vertebral body lesion suggestive of hemangioma. SPINAL CORD: Normal. Normal position and signal intensity of the conus medullaris. SOFT TISSUES: Normal. DISCS/SPINAL CANAL/NEURAL FORAMINA: L1-L2: Mild disc space narrowing. Left central disc protrusion results in mild spinal stenosis. Intact neural foramina. L2-L3: Normal disc height and morphology. Normal spinal canal and lateral recesses. Normal neuroforamina. L3-L4: Normal disc height and morphology. Normal spinal canal and lateral recesses. Normal neuroforamina. L4-L5: Mild disc space narrowing. Broad-based disc protrusion, ligamentous hypertrophy and facet arthropathy results in moderate spinal stenosis and mild to moderate neural foraminal narrowing. L5-S1: Mild disc space narrowing. Mild disc osteophyte complex and facet arthropathy results and moderate bilateral neural foraminal narrowing. No significant spinal stenosis. MRI/Spine Lumbar (Routine) IMPRESSION: Degenerative changes at L1-L2, L4-5 and L5-S1 resulting and spinal neural foraminal stenoses as described. Electronically Signed: Anup Campo MD at 16:45 EST ,
== END | disposition home or self-care (01) ==
PROVIDERS: PCP Nurse Practitioner Family; Referring Provider Family Medicine; Visit Provider Family Medicine
DX: M79.662 Pain in left lower leg (principal)
CPT/HCPCS: 72148

== ENCOUNTER → 2024-12-24 | Outpatient (CLI) | payer MEDICAID, SELFPAY ==
[2024-12-24 16:38] LABS: Absolute Neutrophil Count 6.8 X10^3/uL (2.0-7.7); Basophil# 0.06 X10^3/uL; Basophil% 0.6 % (0-1); Eosinophil# 0.13 X10^3/uL; Eosinophils% 1.4 % (0-5); Hematocrit 40.7 % (37-47); Hemoglobin 13.2 g/dL (12.0-15.0); Mean Corp Hgb Conc 32.4 g/dL (32-36); Mean Corpuscular Hgb 27.3 pg (27.0-32.0); Mean Corpuscular Volume 84.1 fL (81-99); Mean Platelet Vol. 11.2 fl (6.2-12.0); Monocyte# 0.66 X10^3/uL; NRBC Flagged by Analyzer 0 % (0-5); Neutrophil # 6.77 X10^3/uL (2.7-7.7); Neutrophil % 71.7 % (47-70); Platelet Count 222 K/mm3 (150-450); RBC Distribution Width CV 12.7 % (11.6-14.6); RBC Distribution Width SD 38.7 fl (35.1-43.9); Red Blood Count 4.84 M/mm3 (4.2-5.4); White Blood Count 9.5 K/mm3 (4.4-11.0)
[2024-12-24 17:20] LABS: Hemoglobin A1c 6.4 % (<=5.6)
[2024-12-24 17:37] LABS: ALB/GLOB Ratio 1.4 RATIO (0.9-2.4); AST(SGOT) 21 U/L (<=31); Alanine Aminotransfer ALT/SGPT 23 U/L (<=34); Albumin, Serum 4.1 g/dL (3.5-5.0); Alkaline Phosphatase 112 U/L (35-104); Anion Gap 11 (5-15); BUN 18 mg/dL (4-19); Calcium,Total 9.4 mg/dL (7.6-11.0); Carbon Dioxide 23.5 mmol/L (21.0-32.0); Chloride 105 mmol/L (98-108); Cholesterol 229 mg/dL (<=200); Creatinine, Serum 0.59 mg/dL (0.70-1.20); EST Glomerular Filtration Rate 112 (>60); Globulin 2.9 g/dL (2.2-4.2); Glucose 114 mg/dL (70-99); High Density Lipoprotein 45 mg/dL; Low Density Lipoprotein Calc. 124 mg/dL; Sodium Level 139 mmol/L (133-145); Triglycerides 303 mg/dL; Very Low Density Lipoprotein 61 mg/dL (5-40); Vitamin B12 469 pg/mL (180-914); Vitamin D,25 Hydroxy 9.4 ng/mL (30-100); cholesterol:hdl ratio screen 5.15
== END | disposition home or self-care (01) ==
LOC: VSLAB 14:28
PROVIDERS: PCP Nurse Practitioner Family; Visit Provider Nurse Practitioner Family
DX: Z00.00 Encounter for general adult medical examination without abnormal findings (principal); E56.9 Vitamin deficiency, unspecified
CPT/HCPCS: 36415; 80053; 80061; 82306; 82607; 83036; 84443; 85025

== ENCOUNTER → 2025-01-14 | Outpatient (CLI) | payer MEDICAID, SELFPAY ==
--- NOTE | 2025-01-14 13:14 | BI_ITS ---
EXAM: SCRN MAMM (CAD)W/BLAIR BILAT DATE: 01/14/2025 CLINICAL HISTORY: F, Age 49 y/o , SCREENING BREAST CANCER RISK ASSESSMENT: Not calculated at this time. TECHNIQUE: Bilateral screening digital breast tomosynthesis with 2D and 3D images. Computer aided detection. COMPARISON: Prior exam(s) dated 01/09/2023. FINDINGS: TISSUE DENSITY: The breast tissue is almost entirely fatty. Bilateral Breast Mammographic Findings: No significant masses, calcifications or other abnormalities are identified. BI/SCRN MAMM (CAD)W/BLAIR BILAT IMPRESSION: There is no mammographic evidence of malignancy. OVERALL FINAL ASSESSMENT BI-RADS 1: NEGATIVE. RECOMMEND ANNUAL MAMMOGRAPHIC SCREENING. RECOMMENDATION: Routine annual follow-up in 1 Year A letter with findings and recommendations will be mailed to the patient. Reading Location: [id number]
== END | disposition home or self-care (01) ==
LOC: OPBI 13:13
PROVIDERS: PCP Nurse Practitioner Family; Referring Provider Nurse Practitioner Family; Visit Provider Nurse Practitioner Family
DX: Z12.31 Encounter for screening mammogram for malignant neoplasm of breast (principal)
CPT/HCPCS: 77063; 77067

== ENCOUNTER → 2025-02-09 | Outpatient (CLI) | payer MEDICAID, SELFPAY ==
--- NOTE | 2025-02-09 09:38 | US_ITS ---
PROCEDURE: KIDNEY AND BLADDER 02/09/2025 REASON FOR EXAM: ABD PAIN Flank pain. TECHNIQUE: KIDNEY AND BLADDER COMPARISON: None FINDINGS: Kidneys: Normal renal sizes, parenchymal thicknesses, and echotextures. [place]: No evidence of hydronephrosis. Cysts or Masses: No cysts or masses are seen. Other: RIGHT Kidney Size: 12.1 cm x 5.7 cm x 5.4 cm Volume: 194.84 mL Cortical Thickness (if discernible): 15 mm (>6mm is normal) LEFT Kidney Size: 12.5 cm x 5.6 cm x 5.8 cm Volume: 214.77 mL Cortical Thickness (if discernible): 13 mm (>6mm is normal) Urinary bladder is unremarkable. No significant postvoid residual is seen. US/Kidney and Bladder IMPRESSION: NORMAL RENAL ULTRASOUND. Reading Location: [id number]
== END | disposition home or self-care (01) ==
LOC: US 09:37
PROVIDERS: PCP Nurse Practitioner Family; Referring Provider Nurse Practitioner Family; Visit Provider Nurse Practitioner Family
DX: R10.9 Unspecified abdominal pain (principal)
CPT/HCPCS: 76770

== ENCOUNTER → 2025-05-06 | Outpatient (CLI) | payer MEDICAID, SELFPAY ==
--- NOTE | 2025-05-06 15:25 | NEURO ---
NCS and/or EMG Patient Report Ordering Doctor: Eric Lopez [facility] DATE OF SERVICE: 05/06/25 Christine presents with complaints of numbness and tingling in the hands, worse on the right side. Electrodiagnostic findings: Right median motor nerve demonstrates prolonged latency with normal amplitude and conduction velocity. Left median motor response within normal limits. Ulnar motor response within normal limits bilaterally. Prolonged right median sensory latency at the wrist. Needle EMG testing was performed in the upper limbs. All muscles tested showed no evidence of denervation with normal motor unit action potentials. Prolonged right median F–wave is noted. Electrodiagnostic impression: This is an abnormal study. 1. Electrodiagnostic findings suggestive of right sided median mononeuropathy. This is consistent with a mild to moderate right carpal tunnel syndrome. 2. No electrodiagnostic evidence is noted for left sided median mononeuropathy. 3. No electrodiagnostic evidence noted for cervical radiculopathy. Multi Select Codes Neurology Neurology Interp Codes: 52701-42 Musc test done w/n test comp (interp) (2) and 38825-20 Nrv cndj test 11-12 studies (interp)
== END | disposition home or self-care (01) ==
LOC: PSN 13:35
PROVIDERS: PCP Nurse Practitioner Family; Referring Provider Nurse Practitioner Family; Visit Provider Nurse Practitioner Family
DX: R20.2 Paresthesia of skin (principal)
CPT/HCPCS: 95886; 95912

== ENCOUNTER → 2025-05-22 | Outpatient (CLI) | payer MEDICAID, SELFPAY | END | disposition home or self-care (01) | LOC: MRI 10:19 | PROVIDERS: PCP Nurse Practitioner Family; Referring Provider Psychiatry & Neurology Neurology; Visit Provider Psychiatry & Neurology Neurology | DX: R20.2 Paresthesia of skin (principal); G95.9 Disease of spinal cord, unspecified | CPT/HCPCS: 70553; 72141; A9575; A4216 ==